=== PATIENT | male | born 1990 | race Two or more races ===

== ENCOUNTER 2020-11-10 16:55 | Emergency (ER) | payer SELFPAY ==
[2020-11-10] MEDS ORDERED: Sodium Chloride 0.9% 10 ML Syringe FLUSH PRN (17:41)
[2020-11-10] MEDS ORDERED: Sodium Chloride 0.9% 1,000 ML IV ONE (17:43)
[2020-11-10] MEDS ORDERED: Ondansetron 4 MG/2 ML SDV IV ONE (17:43)
[2020-11-10] MEDS ORDERED: GI Cocktail Oral Solution 30 ML PO ONE (17:43)
--- NOTE | 2020-11-10 18:16 | EDM.PDOC ---
Scribed by Taya Lebron 11/10/20 1804 for Roman Valenzuela MD <Roman Valenzuela - Last Filed: 11/10/20 18:53> ED HPI GENERAL MEDICAL PROBLEM - General Chief Complaint: Abdominal Pain Stated Complaint: STOMACH PAIN Time Seen by Provider: 11/10/20 17:15 Source of Information: Reports: Patient, RN, RN Notes Reviewed History Limitations: Reports: No Limitations - History of Present Illness INITIAL COMMENTS - FREE TEXT/NARRATIVE: Patient presents to ED by POV stating that he woke up with upper abdominal pain. He then went to work and worked out in the sun all day. The pain persisted and worsened this evening. He had some nausea on and off, but did not vomit. Denies diarrhea, dysuria, fever or chills. He did have some low back discomfort throughout the day. He has never had this kind of pain before. No history of abdominal surgeries. Denies any other medical problems or history. Onset: Today Duration: Getting Worse Location: Reports: Abdomen Quality: Reports: Ache Severity: Severe Improves with: Reports: None Worsens with: Reports: None Associated Symptoms: Reports: No Other Symptoms epigastric pain Pain Score (Numeric/FACES): 9 - Related Data Allergies Allergy/AdvReac Type Severity Reaction Status Date / Time No Known Allergies Allergy Verified 11/10/20 17:45 Home Meds: Home Meds Ibuprofen 200 mg PO Q6H PRN 11/10/20 [History] ED ROS GENERAL - Review of Systems Review Of Systems: Comprehensive ROS is negative, except as noted in HPI. ED EXAM, GI/ABD - Physical Exam Exam: See Below General Appearance: Alert, WD/WN, No Apparent Distress Eyes: Bilateral: Normal Appearance (No scleral icterus) Nose: Normal Inspection, Normal Mucosa, No Blood Throat/Mouth: Normal Inspection, Normal Lips, Normal Teeth, Normal Gums, Normal Oropharynx, Normal Voice, No Airway Compromise Head: Atraumatic, Normocephalic Neck: Normal Inspection, Supple, Non-Tender, Full Range of Motion Respiratory/Chest: No Respiratory Distress, Lungs Clear, Normal Breath Sounds, No Accessory Muscle Use, Chest Non-Tender Cardiovascular: Normal Peripheral Pulses, Regular Rate, Rhythm, No Edema, No Gallop, No JVD, No Murmur, No Rub GI/Abdominal Exam: Normal Bowel Sounds, Soft, No Organomegaly, No Distention, No Abnormal Bruit, No Mass, Pelvis Stable, Tender (Epigastric region, RUQ, and RLQ). No: Guarding, Rigid, Rebound (Male) Exam: Deferred Rectal (Males) Exam: Deferred Back Exam: Normal Inspection, Full Range of Motion, NT Extremities: Normal Inspection, Normal Range of Motion, Non-Tender, Normal Capillary Refill, No Pedal Edema Neurological: Alert, Oriented, CN II-XII Intact, Normal Cognition, Normal Gait, No Motor/Sensory Deficits Psychiatric: Normal Affect, Normal Mood Skin Exam: Warm, Dry, Intact, Normal Color, No Rash Course - Re-Assessments/Exams Free Text/Narrative Re-Assessment/Exam: 11/10/20 19:00 Care of pt transferred to Erica Ponce PRACTICAL NURSE CLINICAL COORDINATOR at shift change. Departure - Departure Disposition: Home, Self-Care 01 Clinical Impression: Enteritis Abdominal pain Qualifiers: Abdominal location: right lower quadrant Qualified Code(s): R10.31 - Right lower quadrant pain - Discharge Information Forms: ED Department Discharge Additional Instructions: 1.) Eat a bland diet while you continue to experience these symptoms; avoid spicy, greasy, high-fat foods. 2.) Drink plenty of water to stay hydrated. 3.) You may try Pepto Bismol should symptoms return. 4.) Follow up with your primary care provider, or return to the emergency department, with return of symptoms that maintain with medications or worsen. <Erica Ponce - Last Filed: 11/10/20 20:21> Course - Vital Signs Last Recorded V/S: Last Vital Signs Temp 98.4 F 11/10/20 17:37 Pulse 78 11/10/20 17:37 Resp 16 11/10/20 17:37 BP 134/75 11/10/20 17:37 Pulse Ox 98 11/10/20 17:37 - Orders/Labs/Meds Orders: Active Orders 24 hr Category Date Time Status Peripheral IV Care [RC] . DIRECTED Care 11/10/20 17:43 Active Sodium Chloride 0.9% [Saline Flush] Med 11/10/20 17:41 Active 10 ml FLUSH ASDIRECTED PRN Peripheral IV Insertion Adult [OM.PC] Stat Oth 11/10/20 17:41 Ordered Medication Orders Sodium Chloride (Sodium Chloride 0.9% 10 Ml Syringe) 10 ml FLUSH ASDIRECTED PRN PRN Reason: Keep Vein Open Last Admin: 11/10/20 18:02 Dose: 10 ml Documented by: LEXIE Labs: Laboratory Tests 11/10/20 11/10/20 11/10/20 Range/Units 17:50 18:09 18:09 WBC 12.4 H (5.0-10.0) 10^3/uL RBC 4.32 L (4.6-6.2) 10^6/uL Hgb 14.1 (14.0-18.0) g/dL Hct 39.7 L (40.0-54.0) % MCV 91.9 (80-100) fL MCH 32.6 (27.0-34.0) pg MCHC 35.5 H (33.0-35.0) g/dL Plt Count 259 (150-450) 10^3/uL Neut % (Auto) 69.5 (42.2-75.2) % Lymph % (Auto) 20.0 L (20.5-50.1) % [place] % (Auto) 9.3 H (2-8) % Eos % (Auto) 1.0 (1.0-3.0) % Baso % (Auto) 0.2 (0.0-1.0) % Sodium 141 (136-145) mmol/L Potassium 3.5 (3.5-5.1) mmol/L Chloride 106 (98-107) mmol/L Carbon Dioxide 26 (21-32) mmol/L Anion Gap 12.5 (7-13) mEq/L BUN 21 H (7-18) mg/dL Creatinine 0.74 (0.70-1.30) mg/dL Est Cr Clr Drug Dosing 129.32 mL/min Estimated GFR (MDRD) > 60 BUN/Creatinine Ratio 28.4 (No establ ref range) Glucose 119 H (70-99) mg/dL Calcium 8.3 L (8.5-10.1) mg/dL Total Bilirubin 0.4 (0.2-1.0) mg/dL AST 17 (15-37) U/L ALT 29 (16-63) U/L Alkaline Phosphatase 81 (46-116) U/L Total Protein 6.7 (6.4-8.2) g/dL Albumin 3.7 (3.4-5.0) g/dL Globulin 3.0 Albumin/Globulin Ratio 1.2 Amylase 36 (25-115) U/L Lipase 66 L (73-393) U/L Urine Color Yellow (YELLOW) Urine Appearance Clear (CLEAR) Urine pH 5.5 (5.0-9.0) Ur Specific [place] >= 1.030 (1.005-1.030) Urine Protein Negative (NEGATIVE) Urine Glucose (UA) Negative (NEGATIVE) Urine Ketones Negative (NEGATIVE) Urine Occult Blood Negative (NEGATIVE) Urine Nitrite Negative (NEGATIVE) Urine Bilirubin Negative (NEGATIVE) Urine Urobilinogen 0.2 (0.2-1.0) mg/dL Ur Leukocyte Esterase Negative (NEGATIVE) Meds: Medications Generic Name Dose Route Start Last Admin Trade Name Freq PRN Reason Stop Dose Admin Sodium Chloride 10 ml 11/10/20 17:41 11/10/20 18:02 Sodium Chloride 0.9% 10 Ml Syringe FLUSH 10 ml ASDIRECTED PRN Administration Keep Vein Open Discontinued Medications Generic Name Dose Route Start Last Admin Trade Name Freq PRN Reason Stop Dose Admin Al Hydroxide/Mg Hydroxide 30 ml 11/10/20 17:43 11/10/20 18:01 Gi Cocktail Oral Solution 30 Ml PO 11/10/20 17:44 30 ml ONETIME ONE Administration Hydromorphone HCl 1 mg 11/10/20 18:32 11/10/20 18:46 Hydromorphone 1 Mg/Ml Syringe IVPUSH 11/10/20 18:33 1 mg ONETIME ONE Administration Sodium Chloride 1,000 mls @ 999 mls/hr 11/10/20 17:43 11/10/20 18:01 Normal Saline IV 11/10/20 18:43 999 mls/hr .BOLUS ONE Administration Iopamidol 100 ml 11/10/20 18:48 11/10/20 18:55 Iopamidol 612 Mg/Ml 100 Ml Bottle IVPUSH 11/10/20 18:49 100 ml ONETIME ONE Administration Ondansetron HCl 4 mg 11/10/20 17:43 11/10/20 18:01 Ondansetron 4 Mg/2 Ml Sdv IV 11/10/20 17:44 4 mg ONETIME ONE Administration - Radiology Interpretation Free Text/Narrative:: [facility] [place] [facility] Final Radiology Report Call: [phone] assistance Online chat: [email or web address] Name: JASON LOCK Age: 30Years M Date: 11/10/2020 SSN: -- : [id number] Study: CT ABDOMEN PELVIS W CONT Requesting Physician: ROMAN VALENZUELA Images: [id number] Addl Studies: Provided Clinical History: RUQ/periumbilical pain now moved to RLQ Contrast: With Contrast Medium: [id number] Contrast Amount: 100 mL Contrast Method: Intravenous (IV) Page 1 of 2 PROCEDURE INFORMATION: Exam: CT Abdomen And Pelvis With Contrast Exam date and time: 11/10/2020 7:16 PM Age: 30 years old Clinical indication: Other: Wbc 12.4; Additional info: Ruq/periumbilical pain now moved to rlq TECHNIQUE: Imaging protocol: Computed tomography of the abdomen and pelvis with contrast. Radiation optimization: All CT scans at this facility use at least one of these dose optimization techniques: automated exposure control; mA and/or kV adjustment per patient size (includes targeted exams where dose is matched to clinical indication); or iterative reconstruction . Contrast material: [id number]; Contrast volume: 100 ml; Contrast route: INTRAVENOUS (IV); COMPARISON: No relevant prior studies available. FINDINGS: Lungs: Unremarkable.No mass or nodule. Liver: Normal. No mass. Gallbladder and bile ducts: Normal. No calcified stones. No ductal dilation. Pancreas: Normal. No ductal dilation. Spleen: Normal. No splenomegaly. Adrenal glands: Normal. No mass. Kidneys and ureters: Normal. No hydronephrosis. Stomach and bowel: Unremarkable. No obstruction. No mucosal thickening. Appendix: No evidence of appendicitis. Intraperitoneal space: Unremarkable. No free air. No significant fluid collection. Vasculature: Unremarkable. No abdominal aortic aneurysm. Lymph nodes: Unremarkable. No enlarged lymph nodes. Urinary bladder: Unremarkable as visualized. Reproductive: Unremarkable as visualized. Bones/joints: Unremarkable. No acute fracture. Soft tissues: Unremarkable. Other findings: IMPRESSION: No acute abdominal or pelvic findings identified. Thank you for allowing us to participate in the care of your patient. Dictated and Authenticated by: Juan Fisher MD 11/10/2020 7:41 PM Central Time ([place] & [place]) Departure - Departure Time of Disposition: 20:18 Condition: Good - Discharge Information *PRESCRIPTION DRUG MONITORING PROGRAM REVIEWED*: Not Applicable *COPY OF PRESCRIPTION DRUG MONITORING REPORT IN PATIENT SANJAY: Not Applicable Sepsis Event Note (ED) - Focused Exam Vital Signs: Vital Signs Temp Pulse Resp BP Pulse Ox 11/10/20 17:37 98.4 F 78 16 134/75 98 I have read and agree with the documentation that has been completed regarding this visit. By signing this record, I attest that the documentation was completed in my physical presence and is an accurate record of the encounter.
[2020-11-10] MEDS ORDERED: HYDROmorphone 1 MG/ML Syringe IVPUSH ONE (18:32)
[2020-11-10 18:34] LABS: ANION GAP 12.5 mEq/L (7-13); CHLORIDE,CL 106 mmol/L (98-107); SODIUM,NA 141 mmol/L (136-145)
[2020-11-10] MEDS ORDERED: Iopamidol 612 MG/ML 100 ML Bottle IVPUSH ONE (18:48)
--- NOTE | 2020-11-10 19:41 | CT ---
PROCEDURE INFORMATION: Exam: CT Abdomen And Pelvis With Contrast Exam date and time: 11/10/2020 7:16 PM Age: 30 years old Clinical indication: Other: Wbc 12.4; Additional info: Ruq/periumbilical pain now moved to rlq TECHNIQUE: Imaging protocol: Computed tomography of the abdomen and pelvis with contrast. Radiation optimization: All CT scans at this facility use at least one of these dose optimization techniques: automated exposure control; mA and/or kV adjustment per patient size (includes targeted exams where dose is matched to clinical indication); or iterative reconstruction. Contrast material: [id number]; Contrast volume: 100 ml; Contrast route: INTRAVENOUS (IV); COMPARISON: No relevant prior studies available. FINDINGS: Lungs: Unremarkable.No mass or nodule. Liver: Normal. No mass. Gallbladder and bile ducts: Normal. No calcified stones. No ductal dilation. Pancreas: Normal. No ductal dilation. Spleen: Normal. No splenomegaly. Adrenal glands: Normal. No mass. Kidneys and ureters: Normal. No hydronephrosis. Stomach and bowel: Unremarkable. No obstruction. No mucosal thickening. Appendix: No evidence of appendicitis. Intraperitoneal space: Unremarkable. No free air. No significant fluid collection. Vasculature: Unremarkable. No abdominal aortic aneurysm. Lymph nodes: Unremarkable. No enlarged lymph nodes. Urinary bladder: Unremarkable as visualized. Reproductive: Unremarkable as visualized. Bones/joints: Unremarkable. No acute fracture. Soft tissues: Unremarkable. Other findings: IMPRESSION: No acute abdominal or pelvic findings identified.
== END 2020-11-10 20:24 | disposition home or self-care (01) ==
LOC: DL.ED 16:55
DX: K52.9 Noninfective gastroenteritis and colitis, unspecified (principal)
CPT/HCPCS: 36415; 74177; 80053; 81003; 82150; 83690; 85025; 96374; 96375; 99284; 99284-25; A9270-GY; J1170; J2405; J7030; Q9967